=== PATIENT | male | born 1950 | race Caucasian/White ===

== ENCOUNTER 2022-08-22 14:44 | Inpatient (IN) | payer OTHER ==
[~2022-08-22] VITALS: Ht 182.9 cm; Wt 120.8 kg
[~2022-08-22 14:44] MED LIST: AMIT25 PO; ATOR10 PO; Carvedilol12.5 MG PO; Cyclobenzaprine5 MG; DEXA6 PO; GABA100 PO; LISI5 PO; OMEP20ER PO; Percocet 5-3251 EACH PO; TRAZ50; XARELTO20 MG PO
[2022-08-22 15:16] LABS: BASOPHILS ABSOLUTE AUTO 0.03 K/mm3 (0.00-0.23); BASOPHILS PERCENT AUTO 0 % (0-2); EOSINOPHILS ABSOLUTE AUTO 0.02 K/mm3 (0.00-0.68); EOSINOPHILS PERCENT AUTO 0 % (0-6); Hematocrit 43.5 % (37.0-53.0); Hemoglobin 15.5 g/dL (13.5-17.5); IMMATURE GRAN ABSOLUTE AUTO 0.04 K/mm3 (0.00-0.10); IMMATURE GRAN PERCENT AUTO 0 % (0-1); LYMPHOCYTES ABSOLUTE AUTO 1.38 K/mm3 (0.84-5.20); LYMPHOCYTES PERCENT AUTO 12 % (21-46); MONOCYTES ABSOLUTE AUTO 1.02 K/mm3 (0.16-1.47); MONOCYTES PERCENT AUTO 9 % (4-13); Mean Corpuscular HGB 30.3 pg (26.0-34.0); Mean Corpuscular HGB Conc 35.6 g/dL (31.5-36.5); Mean Corpuscular Volume 85 fL (80-100); NEUTROPHILS ABSOLUTE AUTO 9.12 K/mm3 (1.96-9.15); NEUTROPHILS PERCENT AUTO 79 % (41-73); Platelet Count 123 K/mm3 (150-400); RDW Coefficient Variation 12.9 % (11.7-14.2); RDW Standard Deviation 39.5 fL (35.1-46.3); Red Blood Cell Count 5.12 M/mm3 (4.30-5.90); White Blood Cell Count 11.61 K/mm3 (4.00-11.30)
[2022-08-22 15:19] LABS: Mean Platelet Volume 13.3 fL (9.1-12.4)
[2022-08-22 15:38] LABS: Albumin, Blood 3.1 g/dL (3.4-5.0); Albumin/Globulin Ratio 0.7 (0.8-1.8); Bun/Creatinine Ratio 22.8 (12.0-20.0); Calcium, Blood 11.1 mg/dL (8.5-10.1); Creatinine, Blood 1.49 mg/dL (0.60-1.20); Globulin, Blood 4.6 g/dL (2.2-4.0); Potassium, Blood 4.4 mmol/L (3.5-5.5); Total Protein, Blood 7.7 g/dL (6.4-8.2)
[2022-08-23 04:04] LABS: BASOPHILS ABSOLUTE AUTO 0.04 K/mm3 (0.00-0.23); BASOPHILS PERCENT AUTO 0 % (0-2); EOSINOPHILS ABSOLUTE AUTO 0.03 K/mm3 (0.00-0.68); EOSINOPHILS PERCENT AUTO 0 % (0-6); Hematocrit 37.8 % (37.0-53.0); Hemoglobin 13.5 g/dL (13.5-17.5); IMMATURE GRAN ABSOLUTE AUTO 0.03 K/mm3 (0.00-0.10); IMMATURE GRAN PERCENT AUTO 0 % (0-1); LYMPHOCYTES ABSOLUTE AUTO 1.43 K/mm3 (0.84-5.20); LYMPHOCYTES PERCENT AUTO 13 % (21-46); MONOCYTES ABSOLUTE AUTO 1.38 K/mm3 (0.16-1.47); MONOCYTES PERCENT AUTO 13 % (4-13); Mean Corpuscular HGB 30.4 pg (26.0-34.0); Mean Corpuscular HGB Conc 35.7 g/dL (31.5-36.5); Mean Corpuscular Volume 85 fL (80-100); Mean Platelet Volume 13.1 fL (9.1-12.4); NEUTROPHILS ABSOLUTE AUTO 8.02 K/mm3 (1.96-9.15); NEUTROPHILS PERCENT AUTO 73 % (41-73); Platelet Count 124 K/mm3 (150-400); RDW Coefficient Variation 12.8 % (11.7-14.2); RDW Standard Deviation 39.6 fL (35.1-46.3); Red Blood Cell Count 4.44 M/mm3 (4.30-5.90); White Blood Cell Count 10.93 K/mm3 (4.00-11.30)
[2022-08-23 04:16] LABS: Bun/Creatinine Ratio 22.2 (12.0-20.0); Calcium, Blood 10.1 mg/dL (8.5-10.1); Creatinine, Blood 1.35 mg/dL (0.60-1.20); International Normalized Ratio 1.09; Prothrombin Time Results 11.4 Sec (9.7-11.5)
--- NOTE | 2022-08-23 05:20 | NUR ---
SHIFT SUMMARY: PT. CAME IN OVERNIGHT WITH EXTREME HYPERTENSION INTO THE 220S. METOPROLOL, HYDRALAZINE, AND COREG WERE GIVEN TO BRING BP BACK DOWN. BP CAME DOWN TO 140S SYSTOLIC BUT INCREASED INTO THE AM. PT. HAS SCHEDULED AM BP MEDS. PT. IS ON ROOM AIR AND HAS BEEN IN IRREGULAR RHYTHM AND TACHY INTO THE LOW 100S. PT. HAS NO COMPLAINTS OF CHEST PAIN AND HIS ONLY COMPLAINT IS PAIN IN HIS RIGHT GREAT TOE WHICH PT. IS BEING TAKEN TO MRI FOR THIS AM. PODIATRY HAS BEEN CONSULTED ON THE TOE WELL. PT. RESTING COMFORTABLY IN BED WITH NO COMPLAINTS AT THIS TIME.
[2022-08-23 09:23] LABS: CHOL/HDL RATIO 4.2; Cholesterol 130 mg/dL (50-200); HDL Cholesterol 31 mg/dL (>39); Low Density Lipoprotein Chol 63 mg/dL (0-110); Triglycerides 179 mg/dL (30-160); Very Low Density Lipoprot Chol 35 mg/dL (6-32)
--- NOTE | 2022-08-23 10:54 | NUR ---
ASSUMED CARE OF PT AT 0700. MRI COMPLETED AND DR DAS CALLED AND NOTIFIED OF RESULTS. NO NEW ORDERS AT THIS TIME. WILL CONTINUE TO MONITOR.
--- NOTE | 2022-08-23 17:50 | NUR ---
DR DAS IS PLANNING TO TAKE PT TO SURGERY ON SATURDAY 08/25. PT IS RECEIVING IV ABX. FSBS HAVE BEEN HIGH, COVERED PER SS ORDERS, BLOOD PRESSURE HAS IMPROVED, SEE DOCUMENTED VS. NO CHANGES IN PT CONDITION NOTED, PT USES CALL LIGHT FOR NEEDS, PT IS IMPULSIVE AT TIMES, GETTING OOB WITHOUT ASSITANCE. PT'S AT BEDSIDE AND VERY HELPFUL FOR PT CARE. CALL LIGHT IN REACH, WILL CONTINUE TO MONITOR AND GIVE REPORT TO NOC SHIFT RN.
[2022-08-23] MEDS ORDERED: INSULIN GL100 UNIT/3 SC ×2 (21:20)
[2022-08-23] MEDS ORDERED: NOVOLOG FL100 UNIT/3 SC ×2 (21:21)
[2022-08-23] MEDS ORDERED: FLUN25SP ×2 (22:02)
[2022-08-23] MEDS ORDERED: JARDIANCE25 MG PO ×2 (22:03)
[2022-08-23] MEDS ORDERED: OXYC5 PO ×2 (22:04)
[2022-08-23] MEDS ORDERED: PREG25 PO ×2 (22:07)
[2022-08-23] MEDS ORDERED: METF500C PO ×2 (22:09)
[2022-08-23] MEDS ORDERED: ALLEGRA ALLERG180 MG PO ×2 (22:10)
[2022-08-23] MEDS ORDERED: TRAZ100 PO ×2 (22:12)
[2022-08-23] MEDS ORDERED: Hytrin2 MG PO ×2 (22:13)
[2022-08-24 03:41] LABS: Hematocrit 39.8 % (37.0-53.0); Hemoglobin 13.6 g/dL (13.5-17.5); Mean Corpuscular HGB 29.4 pg (26.0-34.0); Mean Corpuscular HGB Conc 34.2 g/dL (31.5-36.5); Mean Corpuscular Volume 86 fL (80-100); Mean Platelet Volume 13.4 fL (9.1-12.4); Platelet Count 136 K/mm3 (150-400); RDW Coefficient Variation 12.9 % (11.7-14.2); RDW Standard Deviation 40.5 fL (35.1-46.3); Red Blood Cell Count 4.63 M/mm3 (4.30-5.90); White Blood Cell Count 10.54 K/mm3 (4.00-11.30)
[2022-08-24 03:58] LABS: Albumin, Blood 2.5 g/dL (3.4-5.0); Albumin/Globulin Ratio 0.6 (0.8-1.8); Bilirubin, Total 0.7 mg/dL (0.1-1.0); Bun/Creatinine Ratio 22.7 (12.0-20.0); Calcium, Blood 10.5 mg/dL (8.5-10.1); Creatinine, Blood 1.28 mg/dL (0.60-1.20); Globulin, Blood 4.2 g/dL (2.2-4.0); Potassium, Blood 3.8 mmol/L (3.5-5.5); Total Protein, Blood 6.7 g/dL (6.4-8.2)
[2022-08-24 04:28] LABS: Vancomycin, Trough 20.5 ug/mL (5.0-10.0)
--- NOTE | 2022-08-24 07:30 | NUR ---
NO ACUTE EVENTS OVERNIGHT LAST NIGHT. PATIENT COMPLAINED OF THE NUMBER OF INTERRUPTIONS TO HIS SLEEP AND ASKED THAT SOMETHING BE DONE TO REDUCE THE INTERRUPTIONS OVERNIGHT SO THAT HE CAN SLEEP. I ADVISED THE PATIENT THAT I WILL DO THE BEST I CAN TO MINIMIZE INTERRUPTIONS TO HIS SLEEP, BUT THE NUMBER OF INTERRUPTIONS ARE ALSO DEPENDENT UPON HIS CONDITION THROUGH THE NIGHT. LAST NIGHT THERE WERE ONGOING ISSUES WITH ELEVATED BLOOD PRESSURE AND HIS BLOOD PRESSURE IS BETTER CONTROLLED AT THIS TIME. PATIENT'S WAS STILL AT BEDSIDE AT 21:00 LAST NIGHT. ADVISED BOTH PATIENT AND HIS SPOUSE THAT VISTING HOURS ARE FROM [phone]. SPOUSE SAID THAT SHE IS NOT GOING TO LEAVE HIS SIDE BECAUSE HE GOT UPSET WITH THE STAFF DURING HIS LAST HOSPITAL STAY AND WAS ASKED BY THE STAFF TO COME IN TO HELP TO CALM HIM DOWN. I STATED THAT I UNDERSTAND THAT THERE ARE TIMES WHEN THAT MAY BE NECESSARY, BUT THAT IS NOT THE CASE THIS HOSPITAL STAY. SUCH, I ASKED THAT THEY ADHERE TO THE HOSPITAL'S VISITING HOURS. THE PATIENT WAS UPSET THAT SHE WAS BEING ASKED TO LEAVE AND MRS. RUTLEDGE REFUSED TO LEAVE. LONG DISCUSSION ALSO HAD WITH PATIENT AND SPOUSE ABOUT THE LIMITATIONS PUT UPON VISITORS WHEN VISITING A PATIENT WHO IS IN ISOLATION. PATIENT IS IN ISOLATION FOR MRSA AND THIS REQUIRES THAT ALL VISITORS WEAR THE APPROPRIATE PPE WHILE IN THE PATIENT'S ROOM AND THAT THE VISITOR MUST REMAIN IN THE ROOM AND NOT COME OUT INTO THE HALLWAY OR INTO OTHER CARE AREAS. THE EXPECTATION IS THAT VISITORS LIMIT THEIR VISITS TO THE PATIENT'S ROOM AND THEN MUST GO DIRECTLY TO THEIR VEHICLE WHEN LEAVING. VISITORS CANNOT GO TO OTHER AREAS OF THE HOSPITAL LIKE THE [place]. I PROVIDED THE SPOUSE WITH AN ISOLATION GOWN AND SOME GLOVES AND SHOWED HER THE PROPER WAY TO DON AND DOFF THE PERSONAL PROTECTIVE EQUIPMENT. PATIENT AND SPOUSE AGREED TO THESE RESTRICTIONS STATED ABOVE.
--- NOTE | 2022-08-24 12:21 | NUR ---
DR DAS AT BEDSIDE, CHANGED DRESSING TO R TOE. DISCUSSED SURGERY WITH PT. REPORT GIVEN TO JOANNA TO ASSUME CARE OF PT.
--- NOTE | 2022-08-24 16:15 | NUR ---
ASSUME CARE THIS RN HAD THIS PT FOR APPROX 2 HRS OF CARE RECEIVED REPORT FROM YAHAIRA DOBBINS AT 1230, NO ACUTE CHANGE SINCE TRANSFER OF CARE THEN PT TRANSFERRED TO SURGICAL FLR RM 209 AT APPROX 1430 REPORT GIVEN TO SAMARIA DOBBINS. PT TRANSFERRED VIA WHEELCHAIR ACCOMPANIED BY PCT ALL BELONGINGS SENT WITH THE PT
--- NOTE | 2022-08-24 16:52 | NUR ---
SHIFT SUMMARY PT A/O X4; PLEASANT AND COOPERATIVE WITH CARE. NPO AT MIDNIGHT FOR AMPUTATION OF R TOE TOMORROW. C/O CRAMPING AND PAIN IN R FOOT/LEG, TREATED PER EMR. SBA TO BATHROOM W/FWW. VSS.
[2022-08-24 23:55] LABS: Vancomycin, Trough 17.2 ug/mL (5.0-10.0)
--- NOTE | 2022-08-25 05:26 | NUR ---
SHIFT SUMMARY: PT SLEPT T/O THE SHIFT. A&OX4. SURGICAL INFECTION PREVENTION KIT COMPLETED. LEFT MONIQUE WRAP AND KERLEX IN PLACE. CLEANED FROM ANKLE UP TO SHOULDER WITH WIPES. TOLERATED PO FLUIDS EARLIER IN THE SHIFT. HAS BEEN NPO SINCE MIDNIGHT. CALLS APPROPRIATELY. PLANS FOR SURGERY TODAY.
[2022-08-25 06:19] LABS: Hemoglobin 13.9 g/dL (13.5-17.5); Mean Corpuscular HGB 29.8 pg (26.0-34.0); Mean Corpuscular HGB Conc 34.8 g/dL (31.5-36.5); Mean Corpuscular Volume 86 fL (80-100); Mean Platelet Volume 12.7 fL (9.1-12.4); Platelet Count 155 K/mm3 (150-400); RDW Standard Deviation 40.1 fL (35.1-46.3); Red Blood Cell Count 4.67 M/mm3 (4.30-5.90); White Blood Cell Count 13.61 K/mm3 (4.00-11.30)
[2022-08-25 06:37] LABS: Albumin, Blood 2.5 g/dL (3.4-5.0); Albumin/Globulin Ratio 0.6 (0.8-1.8); Bilirubin, Total 0.6 mg/dL (0.1-1.0); Bun/Creatinine Ratio 20.8 (12.0-20.0); Calcium, Blood 10.7 mg/dL (8.5-10.1); Creatinine, Blood 1.25 mg/dL (0.60-1.20); Globulin, Blood 4.2 g/dL (2.2-4.0); Potassium, Blood 3.8 mmol/L (3.5-5.5); Total Protein, Blood 6.7 g/dL (6.4-8.2)
[2022-08-25 07:07] LABS: SARS-Cov-2 (COVID-19) PCR, MMC NEGATIVE (NEGATIVE)
--- NOTE | 2022-08-25 11:35 | NUR ---
pt to OR
--- NOTE | 2022-08-25 13:45 | NUR ---
PT ARRIVED BACK TO UNIT FROM PACU. TELE NOTIFIED. PT A&OX4. EATING LUNCH. PAS ON. DENIES PAIN OR N/V. CALL LIGHT AND PHONE WITHIN REACH.
--- NOTE | 2022-08-25 17:18 | NUR ---
summary PT POD 0 FOR R GREAT TOE AMPUTATION. DRESSING CDI. PT TELE SHOWS AFLUTTER, TACHY IN LOW 100S. AMDINISTERED MEDS PER ORDERS. EVENINIG CBG 300, COVERED PER ORDERS. PT ALERT AND ORIENTED. SPOUSE AT BEDSIDE. PT HAS NOT REPORTED ANY PAIN, N/V OR SOB. CALL LIGHT IN REACH.
--- NOTE | 2022-08-25 19:27 | NUR ---
report given to oncoming shift.
--- NOTE | 2022-08-26 03:45 | NUR ---
SHIFT SUMMARY POD1 R GREAT TOE PARTIAL AMPUTATION WRAPPED WITH GAUZE AND MONIQUE WRAP. DRESSING REMAIN CDI. PT REPORT NUMBNESS AND TINLGING WHICH IS HIS BASELINE D/T HX NEUROPATHY. ABLE TO WIGGLE TOES, MOVE LOW EXTREMITIY, CAP REFILL WNL. PT EATING DENIES N/V. VOIDING URINAL WITH ASSISTANCE. CALLS APPROPRIATELY. AOX4. CBG REMAIN HIGH, HS 447 WITH INSULIN COVERAGE WITHOUT IMPROVEMENT AT MIDNIGHT OF 437. CALLED DR. FERNANDO. SEE NEW ORDERS ON EMR. PT DENIES PAIN. CALL LIGHT WITHIN REACH. WILL PROVIDE REPORT TO ONCOMING NURSE.
[2022-08-26 04:38] LABS: BASOPHILS ABSOLUTE AUTO 0.04 K/mm3 (0.00-0.23); BASOPHILS PERCENT AUTO 0 % (0-2); EOSINOPHILS ABSOLUTE AUTO 0.01 K/mm3 (0.00-0.68); EOSINOPHILS PERCENT AUTO 0 % (0-6); Hematocrit 39.8 % (37.0-53.0); Hemoglobin 13.5 g/dL (13.5-17.5); IMMATURE GRAN ABSOLUTE AUTO 0.08 K/mm3 (0.00-0.10); IMMATURE GRAN PERCENT AUTO 0 % (0-1); LYMPHOCYTES ABSOLUTE AUTO 1.57 K/mm3 (0.84-5.20); LYMPHOCYTES PERCENT AUTO 9 % (21-46); MONOCYTES ABSOLUTE AUTO 1.11 K/mm3 (0.16-1.47); MONOCYTES PERCENT AUTO 6 % (4-13); Mean Corpuscular HGB 29.3 pg (26.0-34.0); Mean Corpuscular HGB Conc 33.9 g/dL (31.5-36.5); Mean Corpuscular Volume 87 fL (80-100); Mean Platelet Volume 12.9 fL (9.1-12.4); NEUTROPHILS PERCENT AUTO 84 % (41-73); Platelet Count 199 K/mm3 (150-400); RDW Coefficient Variation 12.8 % (11.7-14.2); RDW Standard Deviation 40.5 fL (35.1-46.3); White Blood Cell Count 17.81 K/mm3 (4.00-11.30)
[2022-08-26 04:57] LABS: Bun/Creatinine Ratio 21.4 (12.0-20.0); Calcium, Blood 11.3 mg/dL (8.5-10.1); Creatinine, Blood 1.45 mg/dL (0.60-1.20); Potassium, Blood 4.5 mmol/L (3.5-5.5)
--- NOTE | 2022-08-26 10:28 | NUR ---
DR CANNON IN TO SEE PT NOTIFIED DR CANNON PT'S AM CBG 355.
--- NOTE | 2022-08-26 10:34 | NUR ---
PLACED MSG TO DR DAS'S OFFICE IN REGARDS TO WB STATUS/ORDERS FOR PT/OT.
[2022-08-26 11:36] LABS: Vancomycin, Trough 19.3 ug/mL (5.0-10.0)
--- NOTE | 2022-08-26 14:53 | NUR ---
OT IN TO SEE PT.
--- NOTE | 2022-08-26 16:53 | NUR ---
SUMMARY NO ACUTE CHANGES T/O SHIFT. PT A&OX4. VSS. WORKED W/PT AND OT TODAY. WEIGHT BEARING PRECAUTIONS: PARTIAL WEIGHT BEARING ON HEEL OF R FOOT. CBGS HAVE IMPROVED THROUGH COURSE OF DAY, THIS AM, CBG 355. THEN EVENING CBG 183. COVERING PER ORDERS. CALL LIGHT IN REACH.
--- NOTE | 2022-08-27 04:21 | NUR ---
SHIFT SUMMARY POD# 2 R GREAT TOE AMPUTATION. DRESSING WITH GAUZE AND MONIQUE WRAP C/D/I. DENIES PAIN, TOLERATING PO INTAKE DENIES N/V. ABLE TO VOID EASILY. REPOSITIONS INDEPENDENTLY. PT TO SEE PATIENT IN AM. NO ACUTE EVENTS, VSS. CALL LIGHT IN REACH.
--- NOTE | 2022-08-27 12:00 | NUR ---
DR. CANNON CONTACTED [facility], PLAN TO RUN AM LABS TOMORROW. PER ORDERS.
--- NOTE | 2022-08-27 17:38 | NUR ---
SHIFT SUMMARY PT A&OX4 AND IN PLEASENT MOOD T/O SHIFT. POD2 R GREAT TOE, MONIQUE AND KURLEX-CDI. PAIN MEDICATED PER EMAR. SPOUSE IN T/O SHIFT AND ASSISTS W/ CARE. PT USES URINAL TO VOID, R/O SCRATCHING PENIS MIN BLOOD NOTED-PLAN TO CONTINUE TO MONITOR FOR BLEEDING. CALL LIGHT W/IN REACH. TOLERATING PO INTAKE, DENIES N/V. BLOOD GLUCOSE MEDICATED PER SLIDE SCALE. TELE IN PLACE-AFLUTT.
[2022-08-27 23:33] LABS: Vancomycin, Trough 23.7 ug/mL (5.0-10.0)
[2022-08-28 04:42] LABS: BASOPHILS ABSOLUTE AUTO 0.14 K/mm3 (0.00-0.23); BASOPHILS PERCENT AUTO 1 % (0-2); EOSINOPHILS PERCENT AUTO 2 % (0-6); Hematocrit 41.3 % (37.0-53.0); Hemoglobin 13.8 g/dL (13.5-17.5); IMMATURE GRAN ABSOLUTE AUTO 0.35 K/mm3 (0.00-0.10); IMMATURE GRAN PERCENT AUTO 3 % (0-1); LYMPHOCYTES ABSOLUTE AUTO 3.02 K/mm3 (0.84-5.20); LYMPHOCYTES PERCENT AUTO 27 % (21-46); MONOCYTES ABSOLUTE AUTO 1.03 K/mm3 (0.16-1.47); MONOCYTES PERCENT AUTO 9 % (4-13); Mean Corpuscular HGB 29.4 pg (26.0-34.0); Mean Corpuscular HGB Conc 33.4 g/dL (31.5-36.5); Mean Corpuscular Volume 88 fL (80-100); Mean Platelet Volume 12.4 fL (9.1-12.4); NEUTROPHILS ABSOLUTE AUTO 6.67 K/mm3 (1.96-9.15); NEUTROPHILS PERCENT AUTO 58 % (41-73); Platelet Count 260 K/mm3 (150-400); RDW Coefficient Variation 13.1 % (11.7-14.2); Red Blood Cell Count 4.69 M/mm3 (4.30-5.90); White Blood Cell Count 11.41 K/mm3 (4.00-11.30)
[2022-08-28 04:55] LABS: Bun/Creatinine Ratio 23.1 (12.0-20.0); Calcium, Blood 11.3 mg/dL (8.5-10.1); Creatinine, Blood 1.6 mg/dL (0.60-1.20); Potassium, Blood 4.2 mmol/L (3.5-5.5)
--- NOTE | 2022-08-28 05:46 | NUR ---
SHIFT SUMMARY POD 2 R GREAT TOE AMPUTATION. PATIENT AOX4, NEEDS 1 SBA GB, FWW TO AMBULATE TO THE BATHROOM. TOELRATES PO INTAKE, DENIES N/V. VOIDS EASILY. AWAITING PATHO AND CULTURE RESULTS FOR ABX THERAPY. IV X2 IN R WIRST, AND R HAND, SALINE LOCKED. DENIES PAIN, UP TO THE CHAIR THIS AM WITH EASE. VSS, CALLS APROPRIATELY.
[2022-08-28] MEDS ORDERED: Acetaminophen650 M1 PO ×2 (16:21)
[2022-08-28] MEDS ORDERED: VANCOMYCIN HCL1 G1 IV ×2 (16:27)
[2022-08-28] MEDS ORDERED: VISBIOME 112.51 EACH PO ×2 (16:29)
--- NOTE | 2022-08-28 18:00 | NUR ---
DISCHARGE SUMMARY POD1 R GREAT TOE AMPUTATION, A/O X4, VSS, TOLERATING PO, DENIES PAIN, ABLE TO GET FROM BED TO BATHROOM WITH FWW INDEPENDENTLY, MONIQUE WRAP TO R FOOT C/D/I AND PATIENT PROVIDED 2 EXTRA MONIQUE WRAPS INCASE CURRENT ONE GETS SOILED AT HOME. DISCUSSED DISCHARGE INFORMATION WITH THE PATIENT INCLUDING HOME CARE, ROLY INFUSIONS, FOLLOW UP APPOINTMENTS, AND CONTACT INFORMATION SHOULD QUESTIONS COME UP AFTER LEAVING. POWERGLIDE IN PLACE FOR INFUSIONS, IV ACCESS DEVICES REMOVED, TELE REMOVED AND RETURNED TO PCU. PT LEFT VIA PRIVATE WC TO GO HOME.
== END 2022-08-28 17:00 | disposition home or self-care (01) | DRG 617 ==
LOC: ER 14:44 → PCU 18:36 → SURS 18:36 → PCU 20:35 → SURS 08-24 14:39
PROVIDERS: Emergency Medicine; Internal Medicine; Student in an Organized Health Care Education/Training Program; ADMIT Hospitalist
PROC: 0Y6P0Z1 Detachment at Right 1st Toe, High, Open Approach (ICD-10-PCS; principal; 2022-08-26)
PROC: 02HV33Z Insertion of Infusion Device into Superior Vena Cava, Percutaneous Approach (ICD-10-PCS; 2022-08-26)
DX: E11.69 Type 2 diabetes mellitus with other specified complication (principal); E87.1 Hypo-osmolality and hyponatremia; I48.92 Unspecified atrial flutter; M86.8X7 Other osteomyelitis, ankle and foot; G62.9 Polyneuropathy, unspecified; S92.421A Displaced fracture of distal phalanx of right great toe, initial encounter for closed fracture; I48.91 Unspecified atrial fibrillation; E11.65 Type 2 diabetes mellitus with hyperglycemia; Z68.24 Body mass index [BMI] 24.0-24.9, adult; E66.01 Morbid (severe) obesity due to excess calories; L03.031 Cellulitis of right toe; E11.22 Type 2 diabetes mellitus with diabetic chronic kidney disease; N18.31 Chronic kidney disease, stage 3a; I12.9 Hypertensive chronic kidney disease with stage 1 through stage 4 chronic kidney disease, or unspecified chronic kidney disease; K21.9 Gastro-esophageal reflux disease without esophagitis; G47.33 Obstructive sleep apnea (adult) (pediatric); E78.5 Hyperlipidemia, unspecified; F43.10 Post-traumatic stress disorder, unspecified; Z87.891 Personal history of nicotine dependence; Z86.14 Personal history of Methicillin resistant Staphylococcus aureus infection; Z79.899 Other long term (current) drug therapy; Z79.01 Long term (current) use of anticoagulants; Z79.4 Long term (current) use of insulin; Z98.42 Cataract extraction status, left eye; Z98.41 Cataract extraction status, right eye
CPT/HCPCS: 36415; 73660; 73718; 80048; 80053; 80061; 80202; 82947; 83036; 83605; 83880; 85025; 85027; 85610; 85651; 86140; 87071; 87075; 87077; 87147; 87186; 87205; 88305; 88311; 93005; 93010; 96365; 96366; 97110; 97116; 97162; 97166; 99285-25; A9270; J0360; J0696; J1100; J1644; J1815; J2001; J2370; J2405; J2704; J2795; J3010; J3370; J7030; J7050; J7120; U0004

== ENCOUNTER 2022-08-30 00:13 | Day surgery (SDC) | payer OTHER ==
[~2022-08-30] VITALS: Ht 182.9 cm; Wt 121.9 kg
[~2022-08-30 00:13] MED LIST changes: +ALLEGRA ALLERG180 MG PO; +Acetaminophen650 M1 PO; +FLUN25SP; +Hytrin2 MG PO; +INSULIN GL100 UNIT/3 SC; +JARDIANCE25 MG PO; +METF500C PO; +NOVOLOG FL100 UNIT/3 SC; +OXYC5 PO; +PREG25 PO; +TRAZ100 PO; +VANCOMYCIN HCL1 G1 IV; +VISBIOME 112.51 EACH PO
[2022-08-30 13:49] LABS: Albumin, Blood 2.7 g/dL (3.4-5.0); Anion Gap 5 mmol/L (6-16); Blood Urea Nitrogen 33 mg/dL (8-24); Bun/Creatinine Ratio 20.5 (12.0-20.0); CO2, Blood 28 mmol/L (21-32); Calcium, Blood 11.3 mg/dL (8.5-10.1); Chloride, Blood 102 mmol/L (98-108); Creatinine, Blood 1.61 mg/dL (0.60-1.20); Glomerular Filtration Rate 45 (60-); Glucose, Blood 138 mg/dL (70-99); Phosphorus, Blood 2.1 mg/dL (2.5-4.9); Potassium, Blood 4.3 mmol/L (3.5-5.5); Sodium, Blood 135 mmol/L (136-145); Vancomycin, Trough 11.6 ug/mL (5.0-10.0)
== END 2022-08-30 15:17 | disposition home or self-care (01) ==
LOC: ATC 00:13
PROVIDERS: Student in an Organized Health Care Education/Training Program
DX: M86.9 Osteomyelitis, unspecified (principal); I12.9 Hypertensive chronic kidney disease with stage 1 through stage 4 chronic kidney disease, or unspecified chronic kidney disease; N18.32 Chronic kidney disease, stage 3b; E11.22 Type 2 diabetes mellitus with diabetic chronic kidney disease; E78.5 Hyperlipidemia, unspecified; I48.91 Unspecified atrial fibrillation; E66.01 Morbid (severe) obesity due to excess calories; Z79.01 Long term (current) use of anticoagulants; Z79.899 Other long term (current) drug therapy
CPT/HCPCS: 80069; 80202; J3370

== ENCOUNTER 2022-08-31 02:08 | Day surgery (SDC) | payer OTHER | END 2022-08-31 13:35 | disposition home or self-care (01) | LOC: ATC 02:08 | DX: M86.9 Osteomyelitis, unspecified (principal); E78.5 Hyperlipidemia, unspecified; I48.91 Unspecified atrial fibrillation; I12.9 Hypertensive chronic kidney disease with stage 1 through stage 4 chronic kidney disease, or unspecified chronic kidney disease; N18.32 Chronic kidney disease, stage 3b; E11.22 Type 2 diabetes mellitus with diabetic chronic kidney disease; E66.01 Morbid (severe) obesity due to excess calories; F17.220 Nicotine dependence, chewing tobacco, uncomplicated; Z79.01 Long term (current) use of anticoagulants; Z79.899 Other long term (current) drug therapy | CPT/HCPCS: J3370 ==

== ENCOUNTER 2022-09-01 01:10 | Day surgery (SDC) | payer OTHER ==
[2022-09-01 14:19] LABS: Creatinine, Blood 1.52 mg/dL (0.60-1.20); Vancomycin, Trough 12.4 ug/mL (5.0-10.0)
--- NOTE | 2022-09-01 14:53 | NUR ---
PT AND ASKING ABOUT FOLLOW UP APPOINTMENTS AND WHO WILL BE COMING TO THEIR HOME. rEVIEWED DISCHARGE INSTRUCTIONS. PT TO SEE DR. DAS FOR FOLLOWUP AND [facility]. PHONE NUMBERS FOR BOTH PROVIDED TO PT'S .
== END 2022-09-01 15:41 | disposition home or self-care (01) ==
LOC: ATC 01:10
PROVIDERS: Student in an Organized Health Care Education/Training Program
DX: E11.69 Type 2 diabetes mellitus with other specified complication (principal); M86.9 Osteomyelitis, unspecified; E11.65 Type 2 diabetes mellitus with hyperglycemia; Z89.411 Acquired absence of right great toe; Z79.4 Long term (current) use of insulin; I48.91 Unspecified atrial fibrillation; Z79.01 Long term (current) use of anticoagulants; I10 Essential (primary) hypertension; E78.5 Hyperlipidemia, unspecified; F17.220 Nicotine dependence, chewing tobacco, uncomplicated; E66.01 Morbid (severe) obesity due to excess calories; E87.1 Hypo-osmolality and hyponatremia
CPT/HCPCS: 80202; 82565; J3370

== ENCOUNTER 2022-09-02 02:40 | Day surgery (SDC) | payer OTHER | END 2022-09-02 10:46 | disposition home or self-care (01) | LOC: ATC 02:40 | DX: M86.9 Osteomyelitis, unspecified (principal); I12.9 Hypertensive chronic kidney disease with stage 1 through stage 4 chronic kidney disease, or unspecified chronic kidney disease; N18.32 Chronic kidney disease, stage 3b; E11.22 Type 2 diabetes mellitus with diabetic chronic kidney disease; E78.5 Hyperlipidemia, unspecified; I48.91 Unspecified atrial fibrillation | CPT/HCPCS: J3370 ==

== ENCOUNTER 2022-09-03 02:20 | Day surgery (SDC) | payer OTHER | END 2022-09-03 11:21 | disposition home or self-care (01) | LOC: ATC 02:20 | DX: E11.69 Type 2 diabetes mellitus with other specified complication (principal); M86.9 Osteomyelitis, unspecified; Z79.4 Long term (current) use of insulin; I10 Essential (primary) hypertension; E78.5 Hyperlipidemia, unspecified | CPT/HCPCS: J3370 ==

== ENCOUNTER 2022-09-04 01:10 | Day surgery (SDC) | payer OTHER ==
[2022-09-04 08:18] LABS: Creatinine, Blood 1.27 mg/dL (0.60-1.20); Glomerular Filtration Rate 60 (60-); Vancomycin, Trough 9.8 ug/mL (5.0-10.0)
== END 2022-09-04 09:57 | disposition home or self-care (01) ==
LOC: ATC 01:10
PROVIDERS: Student in an Organized Health Care Education/Training Program
DX: M86.9 Osteomyelitis, unspecified (principal); I12.9 Hypertensive chronic kidney disease with stage 1 through stage 4 chronic kidney disease, or unspecified chronic kidney disease; N18.32 Chronic kidney disease, stage 3b; E11.22 Type 2 diabetes mellitus with diabetic chronic kidney disease; E66.01 Morbid (severe) obesity due to excess calories; E78.5 Hyperlipidemia, unspecified; I48.91 Unspecified atrial fibrillation; F17.220 Nicotine dependence, chewing tobacco, uncomplicated; Z79.01 Long term (current) use of anticoagulants; Z79.899 Other long term (current) drug therapy
CPT/HCPCS: 80202; 82565; J3370; J7050

== ENCOUNTER 2022-09-05 00:30 | Day surgery (SDC) | payer OTHER | END 2022-09-05 10:02 | disposition home or self-care (01) | LOC: ATC 00:30 | DX: M86.9 Osteomyelitis, unspecified (principal); I48.92 Unspecified atrial flutter; E78.5 Hyperlipidemia, unspecified; I12.9 Hypertensive chronic kidney disease with stage 1 through stage 4 chronic kidney disease, or unspecified chronic kidney disease; N18.32 Chronic kidney disease, stage 3b; E11.22 Type 2 diabetes mellitus with diabetic chronic kidney disease; E66.01 Morbid (severe) obesity due to excess calories | CPT/HCPCS: J3370; J7050 ==

== ENCOUNTER 2022-09-08 02:55 | Day surgery (SDC) | payer OTHER | END 2022-09-08 10:47 | disposition home or self-care (01) | LOC: ATC 02:55 | DX: E11.69 Type 2 diabetes mellitus with other specified complication (principal); M86.9 Osteomyelitis, unspecified; I48.91 Unspecified atrial fibrillation; E11.22 Type 2 diabetes mellitus with diabetic chronic kidney disease; I12.9 Hypertensive chronic kidney disease with stage 1 through stage 4 chronic kidney disease, or unspecified chronic kidney disease; N18.32 Chronic kidney disease, stage 3b; E78.5 Hyperlipidemia, unspecified; I48.92 Unspecified atrial flutter; E66.01 Morbid (severe) obesity due to excess calories; Z89.411 Acquired absence of right great toe; Z79.4 Long term (current) use of insulin; Z79.01 Long term (current) use of anticoagulants; Z86.14 Personal history of Methicillin resistant Staphylococcus aureus infection | CPT/HCPCS: 96365; 96366; J3370; J7050 ==

== ENCOUNTER 2022-09-09 01:36 | Day surgery (SDC) | payer OTHER | END 2022-09-09 10:09 | disposition home or self-care (01) | LOC: ATC 01:36 | DX: E11.69 Type 2 diabetes mellitus with other specified complication (principal); M86.9 Osteomyelitis, unspecified; E78.5 Hyperlipidemia, unspecified; E87.1 Hypo-osmolality and hyponatremia; E11.22 Type 2 diabetes mellitus with diabetic chronic kidney disease; N18.32 Chronic kidney disease, stage 3b; E66.01 Morbid (severe) obesity due to excess calories; I12.9 Hypertensive chronic kidney disease with stage 1 through stage 4 chronic kidney disease, or unspecified chronic kidney disease | CPT/HCPCS: 96365; J3370; J7050 ==

== ENCOUNTER 2022-09-10 02:28 | Day surgery (SDC) | payer OTHER ==
[2022-09-10 08:31] LABS: Creatinine, Blood 1.81 mg/dL (0.60-1.20); Glomerular Filtration Rate 39 (60-); Vancomycin, Trough 20.5 ug/mL (5.0-10.0)
--- NOTE | 2022-09-10 08:40 | NUR ---
PER [facility]ERTH IN PHARMACY WE ARE TO HOLD THE DOSE OF VANCO TODAY AND RECHECK LABS TOMORROW. PT AND EDUCATED REGARDING LAB RESULTS AND PLAN
== END 2022-09-10 08:40 | disposition home or self-care (01) ==
LOC: ATC 02:28
PROVIDERS: Student in an Organized Health Care Education/Training Program
DX: E11.69 Type 2 diabetes mellitus with other specified complication (principal); M86.9 Osteomyelitis, unspecified; I48.91 Unspecified atrial fibrillation; E78.5 Hyperlipidemia, unspecified; I48.92 Unspecified atrial flutter; I12.9 Hypertensive chronic kidney disease with stage 1 through stage 4 chronic kidney disease, or unspecified chronic kidney disease; E11.22 Type 2 diabetes mellitus with diabetic chronic kidney disease; N18.32 Chronic kidney disease, stage 3b; E66.01 Morbid (severe) obesity due to excess calories; Z89.411 Acquired absence of right great toe; Z79.4 Long term (current) use of insulin; Z79.01 Long term (current) use of anticoagulants; Z86.14 Personal history of Methicillin resistant Staphylococcus aureus infection
CPT/HCPCS: 36592; 80202; 82565

== ENCOUNTER 2022-09-11 03:22 | Day surgery (SDC) | payer OTHER ==
[2022-09-11 09:05] LABS: Vancomycin, Random 12.2 ug/mL
== END 2022-09-11 10:57 | disposition home or self-care (01) ==
LOC: ATC 03:22
PROVIDERS: Student in an Organized Health Care Education/Training Program
DX: E11.69 Type 2 diabetes mellitus with other specified complication (principal); M86.9 Osteomyelitis, unspecified; I48.91 Unspecified atrial fibrillation; E78.5 Hyperlipidemia, unspecified; I48.92 Unspecified atrial flutter; E11.22 Type 2 diabetes mellitus with diabetic chronic kidney disease; I12.9 Hypertensive chronic kidney disease with stage 1 through stage 4 chronic kidney disease, or unspecified chronic kidney disease; N18.32 Chronic kidney disease, stage 3b; E66.01 Morbid (severe) obesity due to excess calories; Z89.411 Acquired absence of right great toe; Z79.4 Long term (current) use of insulin; Z79.01 Long term (current) use of anticoagulants; Z86.14 Personal history of Methicillin resistant Staphylococcus aureus infection
CPT/HCPCS: 80202; 82565; 96365; J3370; J7050

== ENCOUNTER 2022-09-13 00:28 | Day surgery (SDC) | payer OTHER ==
[2022-09-13 08:21] LABS: Creatinine, Blood 1.75 mg/dL (0.60-1.20); Vancomycin, Trough 12.7 ug/mL (5.0-10.0)
== END 2022-09-13 10:17 | disposition home or self-care (01) ==
LOC: ATC 00:28
PROVIDERS: Student in an Organized Health Care Education/Training Program
DX: E11.69 Type 2 diabetes mellitus with other specified complication (principal); M86.9 Osteomyelitis, unspecified; E78.5 Hyperlipidemia, unspecified; I48.91 Unspecified atrial fibrillation; I48.92 Unspecified atrial flutter; I12.9 Hypertensive chronic kidney disease with stage 1 through stage 4 chronic kidney disease, or unspecified chronic kidney disease; E11.22 Type 2 diabetes mellitus with diabetic chronic kidney disease; N18.32 Chronic kidney disease, stage 3b; E66.9 Obesity, unspecified; Z79.4 Long term (current) use of insulin; Z89.411 Acquired absence of right great toe; Z79.01 Long term (current) use of anticoagulants; Z86.14 Personal history of Methicillin resistant Staphylococcus aureus infection
CPT/HCPCS: 80202; 82565; J3370; J7050

== ENCOUNTER 2022-09-17 02:31 | Day surgery (SDC) | payer OTHER ==
[2022-09-17 09:02] LABS: Creatinine, Blood 1.62 mg/dL (0.60-1.20); Vancomycin, Trough 10.4 ug/mL (5.0-10.0)
== END 2022-09-17 11:29 | disposition home or self-care (01) ==
LOC: ATC 02:31
PROVIDERS: Student in an Organized Health Care Education/Training Program
DX: E11.69 Type 2 diabetes mellitus with other specified complication (principal); M86.9 Osteomyelitis, unspecified; I48.91 Unspecified atrial fibrillation; I48.92 Unspecified atrial flutter; E78.5 Hyperlipidemia, unspecified; F17.220 Nicotine dependence, chewing tobacco, uncomplicated; I12.9 Hypertensive chronic kidney disease with stage 1 through stage 4 chronic kidney disease, or unspecified chronic kidney disease; N18.32 Chronic kidney disease, stage 3b; E11.22 Type 2 diabetes mellitus with diabetic chronic kidney disease; E66.01 Morbid (severe) obesity due to excess calories; Z89.411 Acquired absence of right great toe; Z79.01 Long term (current) use of anticoagulants; Z79.4 Long term (current) use of insulin
CPT/HCPCS: 80202; 82565; J3370; J7050

== ENCOUNTER 2022-09-19 02:20 | Day surgery (SDC) | payer OTHER | END 2022-09-19 09:28 | disposition home or self-care (01) | LOC: ATC 02:20 | DX: E11.69 Type 2 diabetes mellitus with other specified complication (principal); M86.9 Osteomyelitis, unspecified; I12.9 Hypertensive chronic kidney disease with stage 1 through stage 4 chronic kidney disease, or unspecified chronic kidney disease; E11.22 Type 2 diabetes mellitus with diabetic chronic kidney disease; N18.32 Chronic kidney disease, stage 3b; I48.91 Unspecified atrial fibrillation; E78.5 Hyperlipidemia, unspecified; I48.92 Unspecified atrial flutter; E66.01 Morbid (severe) obesity due to excess calories; Z89.411 Acquired absence of right great toe; Z79.4 Long term (current) use of insulin; Z79.01 Long term (current) use of anticoagulants; Z86.14 Personal history of Methicillin resistant Staphylococcus aureus infection | CPT/HCPCS: 96365; 96366; J3370; J7050 ==

== ENCOUNTER 2022-09-21 02:34 | Day surgery (SDC) | payer OTHER ==
[2022-09-21 09:46] LABS: Vancomycin, Trough 11.3 ug/mL (5.0-10.0)
== END 2022-09-21 11:58 | disposition home or self-care (01) ==
LOC: ATC 02:34
PROVIDERS: Student in an Organized Health Care Education/Training Program
DX: E11.69 Type 2 diabetes mellitus with other specified complication (principal); E11.65 Type 2 diabetes mellitus with hyperglycemia; I48.92 Unspecified atrial flutter; E78.5 Hyperlipidemia, unspecified; E87.1 Hypo-osmolality and hyponatremia; E11.22 Type 2 diabetes mellitus with diabetic chronic kidney disease; N18.32 Chronic kidney disease, stage 3b; I12.9 Hypertensive chronic kidney disease with stage 1 through stage 4 chronic kidney disease, or unspecified chronic kidney disease; E66.01 Morbid (severe) obesity due to excess calories
CPT/HCPCS: 80202; 82565; 96365; 96366; J3370; J7050

== ENCOUNTER 2022-09-23 04:21 | Day surgery (SDC) | payer OTHER | END 2022-09-23 10:44 | disposition home or self-care (01) | LOC: ATC 04:21 | DX: E11.69 Type 2 diabetes mellitus with other specified complication (principal); M86.9 Osteomyelitis, unspecified; Z79.4 Long term (current) use of insulin; I10 Essential (primary) hypertension; E78.5 Hyperlipidemia, unspecified; E11.65 Type 2 diabetes mellitus with hyperglycemia; E87.1 Hypo-osmolality and hyponatremia; E11.22 Type 2 diabetes mellitus with diabetic chronic kidney disease; N18.32 Chronic kidney disease, stage 3b; E66.01 Morbid (severe) obesity due to excess calories | CPT/HCPCS: J3370; J7050 ==

== ENCOUNTER 2023-01-27 16:11 | Inpatient (IN) | payer OTHER ==
[~2023-01-27] VITALS: Ht 172.7 cm; Wt 124.7 kg
[2023-01-27 18:16] LABS: EOSINOPHILS ABSOLUTE AUTO 0.14 K/mm3 (0.00-0.68); EOSINOPHILS PERCENT AUTO 1 % (0-6); Hemoglobin 13.3 g/dL (13.5-17.5); RDW Standard Deviation 41.8 fL (35.1-46.3)
[2023-01-27 18:20] LABS: BASOPHILS ABSOLUTE AUTO 0.04 K/mm3 (0.00-0.23); BASOPHILS PERCENT AUTO 0 % (0-2); Hematocrit 40.2 % (37.0-53.0); IMMATURE GRAN ABSOLUTE AUTO 0.06 K/mm3 (0.00-0.10); IMMATURE GRAN PERCENT AUTO 1 % (0-1); LYMPHOCYTES ABSOLUTE AUTO 2.04 K/mm3 (0.84-5.20); LYMPHOCYTES PERCENT AUTO 19 % (21-46); MONOCYTES ABSOLUTE AUTO 1.25 K/mm3 (0.16-1.47); MONOCYTES PERCENT AUTO 11 % (4-13); Mean Corpuscular HGB 28.5 pg (26.0-34.0); Mean Corpuscular HGB Conc 33.1 g/dL (31.5-36.5); Mean Corpuscular Volume 86 fL (80-100); Mean Platelet Volume 12.3 fL (9.1-12.4); NEUTROPHILS PERCENT AUTO 68 % (41-73); Platelet Count 220 K/mm3 (150-400); RDW Coefficient Variation 13.3 % (11.7-14.2); Red Blood Cell Count 4.66 M/mm3 (4.30-5.90); White Blood Cell Count 10.93 K/mm3 (4.00-11.30)
[2023-01-27 18:48] LABS: Albumin, Blood 3.1 g/dL (3.4-5.0); Albumin/Globulin Ratio 0.6 (0.8-1.8); Bilirubin, Total 0.4 mg/dL (0.1-1.0); Bun/Creatinine Ratio 22.7 (12.0-20.0); Calcium, Blood 11.2 mg/dL (8.5-10.1); Creatinine, Blood 1.76 mg/dL (0.60-1.20); Globulin, Blood 4.8 g/dL (2.2-4.0); Potassium, Blood 4.1 mmol/L (3.5-5.5); Total Protein, Blood 7.9 g/dL (6.4-8.2)
--- NOTE | 2023-01-27 23:26 | NUR ---
PATIENT IS A NEW ADMIT FROM THE ED. ARRIVED VIA W/C AND SBA TO BED. ALERT AND ORIENTED AND ON ROOM AIR. CELLULITIS TO LLE OUTLINE MARKED BY ED RN. PATIENT REPORTS HE DID NOT EAT AFTER TAKING LONG ACTING INSULIN THIS MORNING. CBG CHECK [address] FERNANDO IN ROOM FOR ASSESSMENT AND REPORTS WILL ADD IN ORDERS AND MEDICATION. DENIES CHEST PAIN, SOB, AND N/V. PATIENT ORIENTED TO ROOM AND CALL LIGHT SYSTEM. SIGNIFICANT OTHER IN ROOM FOR ADMIT AND STAYED FOR AN HOUR BEFORE GOING HOME. TV ON PER PATIENT REQUEST. CALL LIGHT IN REACH. WCTM.
--- NOTE | 2023-01-28 00:51 | NUR ---
PODIATRY CONSULT CALLED INTO DR PARADISE GROVER ([facility]) AND HE ANSWERED.
--- NOTE | 2023-01-28 04:17 | NUR ---
SHIFT SUMMARY PATIENT HAD NO ACUTE CHANGES. AXOX 4 AND SBA W/CANE TO BR. ON ROOM AIR. PIV REMAINS INTACT. IV ABX INFUSED. CBG 72. PODIATRY CONSULT CALLED IN. REPORTS LIVES IN [place] WITH SIGNIFICANT OTHER. CELLULITIS TO LLE BORDERLINE MARKED IN ED. VSS/AFEBRILE. DENIES CHEST PAIN, SOB, AND N/V. WATCHED TV AFTER ADMIT AND SLEPT MOST OF THE SHIFT. NS INFUSING @ 75 mL/HR X ONE. COOPERATIVE WITH CARE. CALL LIGHT IN REACH. BED IN LOWEST POSITION. WILL CONTINUE TO MONITOR UNTIL DAY SHIFT NURSE ASSUMES CARE.
[2023-01-28 05:59] LABS: BASOPHILS ABSOLUTE AUTO 0.05 K/mm3 (0.00-0.23); BASOPHILS PERCENT AUTO 1 % (0-2); EOSINOPHILS ABSOLUTE AUTO 0.21 K/mm3 (0.00-0.68); EOSINOPHILS PERCENT AUTO 3 % (0-6); Hemoglobin 12.6 g/dL (13.5-17.5); IMMATURE GRAN ABSOLUTE AUTO 0.06 K/mm3 (0.00-0.10); IMMATURE GRAN PERCENT AUTO 1 % (0-1); LYMPHOCYTES ABSOLUTE AUTO 1.23 K/mm3 (0.84-5.20); LYMPHOCYTES PERCENT AUTO 16 % (21-46); MONOCYTES ABSOLUTE AUTO 0.81 K/mm3 (0.16-1.47); MONOCYTES PERCENT AUTO 10 % (4-13); Mean Corpuscular HGB 28.4 pg (26.0-34.0); Mean Corpuscular HGB Conc 33.2 g/dL (31.5-36.5); Mean Corpuscular Volume 86 fL (80-100); Mean Platelet Volume 11.8 fL (9.1-12.4); NEUTROPHILS ABSOLUTE AUTO 5.56 K/mm3 (1.96-9.15); NEUTROPHILS PERCENT AUTO 70 % (41-73); Platelet Count 190 K/mm3 (150-400); RDW Coefficient Variation 13.3 % (11.7-14.2); RDW Standard Deviation 41.5 fL (35.1-46.3); Red Blood Cell Count 4.43 M/mm3 (4.30-5.90); White Blood Cell Count 7.92 K/mm3 (4.00-11.30)
[2023-01-28 06:26] LABS: Albumin, Blood 2.8 g/dL (3.4-5.0); Albumin/Globulin Ratio 0.7 (0.8-1.8); Bilirubin, Total 0.5 mg/dL (0.1-1.0); Bun/Creatinine Ratio 22.2 (12.0-20.0); Calcium, Blood 10.7 mg/dL (8.5-10.1); Creatinine, Blood 1.53 mg/dL (0.60-1.20); Total Protein, Blood 6.8 g/dL (6.4-8.2)
--- NOTE | 2023-01-28 18:26 | NUR ---
PATIENT IS ALERT AND ORIENTED AND COOPERATIVE WITH CARE. HE IS CONCERNED THAT WE ARENT GIVING HIM HIS HOME DOSE OF INSULIN, DR. WARREN NOTIFIED. DR. GROVER SAW THE PATIENT THIS EVENING AND PLACED SOME ORDERS. THE PATIENTS WAS AT THE BEDSIDE MOST OF THE DAY. NO NEW CONCERNS. WILL CONTINUE TO MONITOR
[2023-01-29 06:05] LABS: BASOPHILS ABSOLUTE AUTO 0.07 K/mm3 (0.00-0.23); BASOPHILS PERCENT AUTO 1 % (0-2); EOSINOPHILS ABSOLUTE AUTO 0.35 K/mm3 (0.00-0.68); EOSINOPHILS PERCENT AUTO 5 % (0-6); Hematocrit 38.7 % (37.0-53.0); Hemoglobin 12.9 g/dL (13.5-17.5); IMMATURE GRAN ABSOLUTE AUTO 0.05 K/mm3 (0.00-0.10); IMMATURE GRAN PERCENT AUTO 1 % (0-1); LYMPHOCYTES ABSOLUTE AUTO 1.85 K/mm3 (0.84-5.20); LYMPHOCYTES PERCENT AUTO 27 % (21-46); MONOCYTES ABSOLUTE AUTO 0.81 K/mm3 (0.16-1.47); MONOCYTES PERCENT AUTO 12 % (4-13); Mean Corpuscular HGB 28.5 pg (26.0-34.0); Mean Corpuscular HGB Conc 33.3 g/dL (31.5-36.5); Mean Corpuscular Volume 86 fL (80-100); Mean Platelet Volume 11.5 fL (9.1-12.4); NEUTROPHILS ABSOLUTE AUTO 3.82 K/mm3 (1.96-9.15); NEUTROPHILS PERCENT AUTO 55 % (41-73); Platelet Count 212 K/mm3 (150-400); RDW Standard Deviation 40.7 fL (35.1-46.3); Red Blood Cell Count 4.52 M/mm3 (4.30-5.90); White Blood Cell Count 6.95 K/mm3 (4.00-11.30)
[2023-01-29 06:28] LABS: Bun/Creatinine Ratio 23.7 (12.0-20.0); Calcium, Blood 11.6 mg/dL (8.5-10.1); Creatinine, Blood 1.35 mg/dL (0.60-1.20); Potassium, Blood 4.4 mmol/L (3.5-5.5)
--- NOTE | 2023-01-29 08:00 | NUR ---
pt up ad pancho in room ambulates indep, a/ox4, pleasant and cooperative with care, follows commands well, denies pain at this time, lungs are clear t/o, resp even and unlabored, no cough noted, hrr, edema noted to l foot that has cellulitis, piv to rfa site clear and patent, btx4, abd flat soft nontender, voids without diff, skin c/w/d, except for left foot, is pink and swollen, chery wells, call light in reach.
--- NOTE | 2023-01-29 18:19 | NUR ---
pt has had an uneventful day, at bedside most of the day, no complaints of pain, declined shower, no acute changes states he feels his foot is improving. call light in reach.
[2023-01-30 05:57] LABS: BASOPHILS ABSOLUTE AUTO 0.06 K/mm3 (0.00-0.23); BASOPHILS PERCENT AUTO 1 % (0-2); EOSINOPHILS ABSOLUTE AUTO 0.36 K/mm3 (0.00-0.68); EOSINOPHILS PERCENT AUTO 5 % (0-6); Hematocrit 39.1 % (37.0-53.0); Hemoglobin 13.2 g/dL (13.5-17.5); IMMATURE GRAN ABSOLUTE AUTO 0.03 K/mm3 (0.00-0.10); IMMATURE GRAN PERCENT AUTO 0 % (0-1); LYMPHOCYTES ABSOLUTE AUTO 2.17 K/mm3 (0.84-5.20); LYMPHOCYTES PERCENT AUTO 27 % (21-46); MONOCYTES ABSOLUTE AUTO 0.75 K/mm3 (0.16-1.47); MONOCYTES PERCENT AUTO 10 % (4-13); Mean Corpuscular HGB 29.1 pg (26.0-34.0); Mean Corpuscular HGB Conc 33.8 g/dL (31.5-36.5); Mean Corpuscular Volume 86 fL (80-100); Mean Platelet Volume 11.8 fL (9.1-12.4); NEUTROPHILS ABSOLUTE AUTO 4.54 K/mm3 (1.96-9.15); NEUTROPHILS PERCENT AUTO 57 % (41-73); Platelet Count 233 K/mm3 (150-400); RDW Standard Deviation 40.2 fL (35.1-46.3); Red Blood Cell Count 4.54 M/mm3 (4.30-5.90); White Blood Cell Count 7.91 K/mm3 (4.00-11.30)
[2023-01-30 06:23] LABS: Bun/Creatinine Ratio 21.1 (12.0-20.0); Calcium, Blood 11.5 mg/dL (8.5-10.1); Creatinine, Blood 1.23 mg/dL (0.60-1.20); Potassium, Blood 4.5 mmol/L (3.5-5.5)
--- NOTE | 2023-01-30 07:32 | NUR ---
ROCKY SLEPT OFF AND ON LAST NIGHT. HE'S A VERY LIGHT SLEEPER, AND WOULD WAKE EACH TIME STAFF WOULD CHECK ON HIM. HE IS INDEPENDENT WITH A CANE TO THE BATHROOM, AND HAD MINIMAL COMPLAINTS OF PAIN OR DISCOMFORT. HE DID NOT WANT TYLENOL, HOWEVER IF HE STAYS TODAY, HE WOULD LIKE SOMETHING STRONGER THAN TYLENOL, YET WEAKER THAN THE FENTANYL WHICH IS THE ONLY OTHER MEDICATION ON HIS ORDERS. REDNESS ON MEDIAL PORTION OF LEFT FOOT APPEARS TO BE RECEDING FROM MARKED LINE
--- NOTE | 2023-01-30 17:29 | NUR ---
SHIFT SUMMARY PT AXO, PLEASANT AND COOPERATIVE WITH CARE. VSS THOUGH HYPERTENSION NOTED WITH AFTERNOON VS. WILL MEDICATED WITH SCHEDULED MEDS PER EMAR. PT DENIES PAIN, SOB AND NV. PT AWAITING FOLLOW UP PODIATRY CONSULT. PER DR DAS, HE WILL SEE PATIENT TOMORROW. NO ACUTE CHANGES THIS SHIFT. PT UP AD JEANNETTE INDEPENDENTLY THOUGH ENCOURAGED TO CALL FOR ASSISTANCE WHEN NEEDED. PT'S SPOUSE PRESENT THROUGHOUT THE SHIFT. BED IN LOW POSITION, CALL LIGHT WITHIN REACH.
[2023-01-31 06:20] LABS: BASOPHILS ABSOLUTE AUTO 0.09 K/mm3 (0.00-0.23); BASOPHILS PERCENT AUTO 1 % (0-2); EOSINOPHILS ABSOLUTE AUTO 0.31 K/mm3 (0.00-0.68); EOSINOPHILS PERCENT AUTO 4 % (0-6); Hematocrit 42.2 % (37.0-53.0); Hemoglobin 13.9 g/dL (13.5-17.5); IMMATURE GRAN ABSOLUTE AUTO 0.11 K/mm3 (0.00-0.10); IMMATURE GRAN PERCENT AUTO 1 % (0-1); LYMPHOCYTES ABSOLUTE AUTO 2.55 K/mm3 (0.84-5.20); LYMPHOCYTES PERCENT AUTO 30 % (21-46); MONOCYTES ABSOLUTE AUTO 0.79 K/mm3 (0.16-1.47); MONOCYTES PERCENT AUTO 9 % (4-13); Mean Corpuscular HGB 28.3 pg (26.0-34.0); Mean Corpuscular HGB Conc 32.9 g/dL (31.5-36.5); Mean Corpuscular Volume 86 fL (80-100); Mean Platelet Volume 11.4 fL (9.1-12.4); NEUTROPHILS ABSOLUTE AUTO 4.58 K/mm3 (1.96-9.15); NEUTROPHILS PERCENT AUTO 54 % (41-73); Platelet Count 243 K/mm3 (150-400); RDW Coefficient Variation 12.9 % (11.7-14.2); RDW Standard Deviation 40.2 fL (35.1-46.3); Red Blood Cell Count 4.92 M/mm3 (4.30-5.90); White Blood Cell Count 8.43 K/mm3 (4.00-11.30)
[2023-01-31 06:36] LABS: Bun/Creatinine Ratio 23.5 (12.0-20.0); Calcium, Blood 12.1 mg/dL (8.5-10.1); Creatinine, Blood 1.32 mg/dL (0.60-1.20); Potassium, Blood 4.6 mmol/L (3.5-5.5)
[2023-01-31] MEDS ORDERED: DOXA2 PO (12:10)
[2023-01-31] MEDS ORDERED: CEPH500 PO (12:11)
--- NOTE | 2023-01-31 14:54 | NUR ---
PT AWAKE DURING SHIFT REPORT, LYING HF WITH TV ON. ADMITTED FOR L FOOT INFECTION, NOW REQUESTING TO GO HOME. PT REPORTING L FOOT SWELLING MUCH IMPROVED FROM ADMIT, THOUGH STILL SHOWING REDNESS AND SWELLING. DR DELVALLE AND DR WARREN BOTH IN TO SEE PT AND DISCUSS PLAN OF CARE. DR DELVALLE NOTIFIED DR DAS FROM PODIATRY. DR DAS TO TO ASSESS PT'S FOOT; PT CLEARED FOR D/C FROM PODIATRY. PT TO F/U WITH DR DAS THIS NEXT WEEK IN OFFICE. DR WARREN UPDATED AND NOTIFIED DR DAS. D/C ORDERS PLACED. MEDS FAXED TO [facility], PER PT REQUEST, SINCE [place] CLOSED TODAY. D/C INSTRUCTIONS REVIEWED WITH PT AND ; VERBALIZED UNDERSTANDING. PT ASSISTED OUT TO 'S CARE VIA W/C.
== END 2023-01-31 12:43 | disposition home or self-care (01) | DRG 638 ==
LOC: ER 16:11 → MEDS 16:12
PROVIDERS: Family Medicine; Student in an Organized Health Care Education/Training Program; ADMIT Internal Medicine
DX: E11.628 Type 2 diabetes mellitus with other skin complications (principal); I48.92 Unspecified atrial flutter; L03.116 Cellulitis of left lower limb; E11.40 Type 2 diabetes mellitus with diabetic neuropathy, unspecified; I10 Essential (primary) hypertension; E78.5 Hyperlipidemia, unspecified; E83.52 Hypercalcemia; I48.91 Unspecified atrial fibrillation; K21.9 Gastro-esophageal reflux disease without esophagitis; M10.9 Gout, unspecified; Z86.14 Personal history of Methicillin resistant Staphylococcus aureus infection; Z88.3 Allergy status to other anti-infective agents; Z88.8 Allergy status to other drugs, medicaments and biological substances; Z79.4 Long term (current) use of insulin; Z79.02 Long term (current) use of antithrombotics/antiplatelets; Z79.899 Other long term (current) drug therapy
CPT/HCPCS: 36415; 73630; 80048; 80053; 82947; 83605; 84550; 85025; 85651; 86140; 87040; 94640; 94664; 94760; 96365; 96366; 99285-25; A9270; G0378; J0690; J1815; J3370; J7030; J7050

== ENCOUNTER 2023-07-04 00:59 | Inpatient (IN) | payer OTHER ==
[~2023-07-04] VITALS: Ht 185.4 cm; Wt 123.2 kg
[~2023-07-04 00:59] MED LIST changes: +CEPH500 PO; +DOXA2 PO
[2023-07-04 02:25] LABS: Albumin, Blood 2.8 g/dL (3.4-5.0); Albumin/Globulin Ratio 0.6 (0.8-1.8); Bilirubin, Total 0.8 mg/dL (0.1-1.0); Bun/Creatinine Ratio 15.6 (12.0-20.0); Calcium, Blood 11.1 mg/dL (8.5-10.1); Creatinine, Blood 2.24 mg/dL (0.60-1.20); Globulin, Blood 4.6 g/dL (2.2-4.0); Potassium, Blood 4.3 mmol/L (3.5-5.5); Total Protein, Blood 7.4 g/dL (6.4-8.2)
[2023-07-04 02:27] LABS: BASOPHILS ABSOLUTE AUTO 0.03 K/mm3 (0.00-0.23); BASOPHILS PERCENT AUTO 0 % (0-2); EOSINOPHILS ABSOLUTE AUTO 0.05 K/mm3 (0.00-0.68); EOSINOPHILS PERCENT AUTO 0 % (0-6); Hematocrit 44.7 % (37.0-53.0); Hemoglobin 14.7 g/dL (13.5-17.5); IMMATURE GRAN ABSOLUTE AUTO 0.06 K/mm3 (0.00-0.10); IMMATURE GRAN PERCENT AUTO 0 % (0-1); LYMPHOCYTES ABSOLUTE AUTO 1.69 K/mm3 (0.84-5.20); LYMPHOCYTES PERCENT AUTO 11 % (21-46); MONOCYTES ABSOLUTE AUTO 1.62 K/mm3 (0.16-1.47); MONOCYTES PERCENT AUTO 10 % (4-13); Mean Corpuscular HGB Conc 32.9 g/dL (31.5-36.5); Mean Corpuscular Volume 88 fL (80-100); NEUTROPHILS ABSOLUTE AUTO 12.08 K/mm3 (1.96-9.15); NEUTROPHILS PERCENT AUTO 78 % (41-73); Platelet Count 126 K/mm3 (150-400); RDW Coefficient Variation 14.7 % (11.7-14.2); RDW Standard Deviation 47.8 fL (35.1-46.3); Red Blood Cell Count 5.07 M/mm3 (4.30-5.90); White Blood Cell Count 15.53 K/mm3 (4.00-11.30)
[2023-07-04 02:34] LABS: Mean Platelet Volume 13.3 fL (9.1-12.4)
[2023-07-04 04:44] VITALS: BP 99/62
[2023-07-04 07:43] VITALS: BP 121/71
--- NOTE | 2023-07-04 09:00 | NUR ---
pt laying in bed watching tv, a/ox4, pleasant and cooperative with care, follows commands well, denies pain at this time, lungs are dim t/o, resp even and unlabored, no cough noted, hrirr, tele in place running afib per monitor, see strip, 1 - 2+ edema noted to b/l feet, pp faint, cap refill <3sec, vs stable, afebrile, iv site to r fa, site is clear and patent, infusing ns at 75mls/hr, btx4, abd flat soft nontender, voids via urinal, skin has 2nd degree boateng on soles of feet, the whole length of the foot, skin otherwise looks good, chery wells, call light in reach.
[2023-07-04 12:38] LABS: Albumin, Blood 2.9 g/dL (3.4-5.0); Albumin/Globulin Ratio 0.7 (0.8-1.8); Bilirubin, Total 0.7 mg/dL (0.1-1.0); Calcium, Blood 10.6 mg/dL (8.5-10.1); Creatinine, Blood 2.24 mg/dL (0.60-1.20); Potassium, Blood 4.2 mmol/L (3.5-5.5); Total Protein, Blood 6.9 g/dL (6.4-8.2)
[2023-07-04 12:44] LABS: BASOPHILS ABSOLUTE AUTO 0.03 K/mm3 (0.00-0.23); BASOPHILS PERCENT AUTO 0 % (0-2); EOSINOPHILS ABSOLUTE AUTO 0.05 K/mm3 (0.00-0.68); EOSINOPHILS PERCENT AUTO 0 % (0-6); Hematocrit 38.6 % (37.0-53.0); Hemoglobin 13.2 g/dL (13.5-17.5); IMMATURE GRAN ABSOLUTE AUTO 0.08 K/mm3 (0.00-0.10); IMMATURE GRAN PERCENT AUTO 1 % (0-1); LYMPHOCYTES ABSOLUTE AUTO 1.44 K/mm3 (0.84-5.20); LYMPHOCYTES PERCENT AUTO 12 % (21-46); MONOCYTES ABSOLUTE AUTO 1.14 K/mm3 (0.16-1.47); MONOCYTES PERCENT AUTO 9 % (4-13); Mean Corpuscular HGB 29.3 pg (26.0-34.0); Mean Corpuscular HGB Conc 34.2 g/dL (31.5-36.5); Mean Corpuscular Volume 86 fL (80-100); NEUTROPHILS ABSOLUTE AUTO 9.53 K/mm3 (1.96-9.15); NEUTROPHILS PERCENT AUTO 78 % (41-73); Platelet Count 142 K/mm3 (150-400); RDW Coefficient Variation 14.7 % (11.7-14.2); RDW Standard Deviation 45.8 fL (35.1-46.3); Red Blood Cell Count 4.51 M/mm3 (4.30-5.90); White Blood Cell Count 12.27 K/mm3 (4.00-11.30)
[2023-07-04 12:58] LABS: Mean Platelet Volume 13.6 fL (9.1-12.4)
[2023-07-04 16:36] VITALS: BP 169/97
--- NOTE | 2023-07-04 17:10 | NUR ---
SPOKE TO DR GARCIA. CHANGE S/S TO MARISA CAAL PEN, HIGH S/S. GIVE 18 UNITS NOW FOR CBG OF 427. MOVE TO ADA DIET. STARTING GLARGINE 40 UNITS BID. START 9PM
--- NOTE | 2023-07-04 17:13 | NUR ---
RECHECK CGB 2 HRS. FOR NEW CBG
--- NOTE | 2023-07-04 18:02 | NUR ---
pt was incont of urine in his shorts, these were removed, he was cleaned and new bedding placed on bed, dressings on feet as ordered, insulin was changed by Dr. Prakash as his glucose in the 's, no further changes this shift. call light in reach.
[2023-07-04 19:52] VITALS: BP 150/94
[2023-07-05 05:10] LABS: BASOPHILS ABSOLUTE AUTO 0.05 K/mm3 (0.00-0.23); BASOPHILS PERCENT AUTO 1 % (0-2); EOSINOPHILS ABSOLUTE AUTO 0.17 K/mm3 (0.00-0.68); EOSINOPHILS PERCENT AUTO 2 % (0-6); Hematocrit 38.2 % (37.0-53.0); Hemoglobin 12.7 g/dL (13.5-17.5); IMMATURE GRAN ABSOLUTE AUTO 0.06 K/mm3 (0.00-0.10); IMMATURE GRAN PERCENT AUTO 1 % (0-1); LYMPHOCYTES ABSOLUTE AUTO 1.68 K/mm3 (0.84-5.20); LYMPHOCYTES PERCENT AUTO 16 % (21-46); MONOCYTES ABSOLUTE AUTO 1.18 K/mm3 (0.16-1.47); MONOCYTES PERCENT AUTO 11 % (4-13); Mean Corpuscular HGB 29.1 pg (26.0-34.0); Mean Corpuscular HGB Conc 33.2 g/dL (31.5-36.5); Mean Corpuscular Volume 88 fL (80-100); NEUTROPHILS PERCENT AUTO 70 % (41-73); Platelet Count 158 K/mm3 (150-400); RDW Coefficient Variation 14.5 % (11.7-14.2); RDW Standard Deviation 46.9 fL (35.1-46.3); Red Blood Cell Count 4.36 M/mm3 (4.30-5.90); White Blood Cell Count 10.44 K/mm3 (4.00-11.30)
[2023-07-05 05:14] VITALS: BP 151/89
--- NOTE | 2023-07-05 05:34 | NUR ---
SHIFT SUMMARY; NO ACUTE CHANGES OVERNIGHT. THE PT HAS BEEN SLEEPING IN BED FOR THE ENTIRETY OF THE NIGHT. THE PT IS AXO X4 AND INCONTINENT. THE PT HAS GOTTEN TWO DRESSING CHANGES TO HIS FEET THIS SHIFT. THE PT DENIES ANY PAIN TO HIS FEET HE HAS NO FEELING R/T NEUROPATHY. THE PT IS ON TELE- A-FIB/A-FLUTTER OVERNIGHT. THE PT DENIES ANY CHEST PAIN/PRESSURE, SOB, N/V OR PAIN THIS SHIFT. CURRENTLY THE PT IS SLEEPING IN BED WITH THE BED IN THE LOWEST POSITION AND THE CALL LIGHT AT BEDSIDE. FIRE SAFETY MAINTAINED T/O THE NIGHT.
[2023-07-05 05:39] LABS: Albumin, Blood 2.5 g/dL (3.4-5.0); Anion Gap 6 mmol/L (6-16); Blood Urea Nitrogen 36 mg/dL (8-24); Bun/Creatinine Ratio 20.1 (12.0-20.0); CO2, Blood 22 mmol/L (21-32); Calcium, Blood 10.9 mg/dL (8.5-10.1); Chloride, Blood 105 mmol/L (98-108); Creatinine, Blood 1.79 mg/dL (0.60-1.20); Glomerular Filtration Rate 40 (60-); Glucose, Blood 214 mg/dL (70-99); Potassium, Blood 4.3 mmol/L (3.5-5.5); Sodium, Blood 133 mmol/L (136-145)
[2023-07-05 07:44] VITALS: BP 133/89
--- NOTE | 2023-07-05 15:37 | NUR ---
DRESSING CHANGE DRESSING CHANGE PERFORMED THIS SHIFT PER THE WOUND CARE ORDERS. PT TOLERATED THE DRESSING CHANGED WELL.
[2023-07-05 15:56] VITALS: BP 157/99
--- NOTE | 2023-07-05 16:46 | NUR ---
SHIFT SUMMARY PT AOX4, BEDREST. PT IS INCONTINENT, BRIEF IN PLACE AND CHANGED PRN. PT'S HAS BEEN AT THE BS ALL SHIFT. HE HAS HAD NO COMPLAINTS. CALLS WELL AND MAKES HIS NEEDS KNOWN. AWAITING A CONSULT FROM THE CHILD PROTECTIVE SERVICES SOCIAL WORKER. FIRE SAFETY PROTOCOLS AND PROCEDURES ACKNOWLEDGED BY THE PT AND . HE IS ON RA. CALL LIGHT WITHIN REACH, BED IN THE LOWEST POSITION. WILL REPORT TO ONCOMING NURSE.
[2023-07-05 19:32] VITALS: BP 153/113
[2023-07-06] VITALS (7 sets, daily range): BP systolic 114–197; BP diastolic 72–112
--- NOTE | 2023-07-06 05:01 | NUR ---
FENTANYL 50 MCG FOR CHRONIC BACK PAIN, AOX4, PLEASANT, HYPERTENSIVE AND A FIB BETWEEN 100-120, TELE MONITORING IN PROGRESS. DRESSING CHANGES TO BLE ORDERED, NO CHANGES NOTED TO FEET FROM REPORT. INCONTINENT OF URINE THOUGH PT STATES HE IS CONTINENT AT HOME. FIRE SAFETY REVIEWED.
[2023-07-06 05:35] LABS: Bun/Creatinine Ratio 23.1 (12.0-20.0); Calcium, Blood 11.5 mg/dL (8.5-10.1); Creatinine, Blood 1.43 mg/dL (0.60-1.20); Potassium, Blood 4.1 mmol/L (3.5-5.5)
[2023-07-07 02:22] VITALS: BP 152/96
--- NOTE | 2023-07-07 05:24 | NUR ---
SHIFT SUMMARY WOUND CARE COMPLETED THIS SHIFT ORDERED. PT TOLERATED WELL. AWAITING PODIETRY CONSULT FOR FURTHER TREATMENT PLAN OF WOUNDS. MEDICATED FOR PAIN ONCE THIS SHIFT. PLEASANT & COOPERATIVE T/O SHIFT. CURRENTLY RESTING IN BED WITH CALL LIGHT IN REACH. DENIES OTHER NEEDS AT THIS TIME. NO ACUTE CHANGES IN ASSESSMENT AT THIS TIME. VS REVIEWED. NO TELE EVENTS OVERNIGHT.
[2023-07-07 05:59] LABS: Bun/Creatinine Ratio 23.5 (12.0-20.0); Calcium, Blood 11.6 mg/dL (8.5-10.1); Creatinine, Blood 1.32 mg/dL (0.60-1.20); Potassium, Blood 4.7 mmol/L (3.5-5.5)
[2023-07-07 07:51] VITALS: BP 113/91
--- NOTE | 2023-07-07 12:31 | NUR ---
TELEPHONE ORDER FROM DR. DAS FOR PT TO BE "PARTIAL WEIGHT BEARING TO HEELS ONLY." RN CALLED MD TO GET WT BEARING ORDER. RN TO PLACE ORDER.
--- NOTE | 2023-07-07 12:38 | NUR ---
CALLED DR. OWENS AND INFORMED HIM PT HAS NOT HAD A BM SINCE 07/01/23. SAID HE WILL ORDER BOWEL CARE ORDERS.
[2023-07-07 15:37] VITALS: BP 99/66
--- NOTE | 2023-07-07 17:15 | NUR ---
SUMMARY- NO ACUTE EVENTS THIS SHIFT. PAIN WELL CONTROLLED W/PAIN MEDS PER EMAR THIS SHIFT. LEFT FA IV BECAME INFILTRATED THIS SHIFT AND WAS REMOVED. NEW IV PLACED. RN CLARIFIED PT'S WEIGHT BEARING STATUS PER DAS. PT IS TO BE PARTIALLY WEIGHT BEARING TO BILATERAL HEELS. PT REFUSED TO WORK W/PT TODAY. PT STAYED IN BED ALL SHIFT. RN EDUCATED PT ABOUT MAINTAINING SKIN INTEGRITY AND OFFLOADING PRESSURE. ORDERED WOUND CARE TO BILAT FEET PERFORMED PER ORDERS.
[2023-07-07 20:08] VITALS: BP 132/85
[2023-07-08 00:44] LABS: Vancomycin, Trough 24.7 ug/mL (5.0-10.0)
[2023-07-08 00:47] LABS: Bun/Creatinine Ratio 27.2 (12.0-20.0); Calcium, Blood 11.5 mg/dL (8.5-10.1); Creatinine, Blood 1.36 mg/dL (0.60-1.20); Potassium, Blood 5.1 mmol/L (3.5-5.5)
[2023-07-08 02:05] VITALS: BP 127/79
--- NOTE | 2023-07-08 05:36 | NUR ---
SHIFT SUMMARY A/Ox4 AND MOSTLY COOPERATIVE WITH CARE. ANSWERS QUESTIONS APPROPRIATELY AND MAKES MOST OF HIS NEEDS KNOWN. NO ACUTE EVENTS OVERNIGHT FOR PT WAS ABLE TO SLEEP T/O MOST OF THE SHIFT. CARDIAC, REMAINS IN AFLUTTER 90-100'S WITH NO REPORTS OF ANY CP OR PRESSURE. SBP HAS BEEN STABLE RANGING 120-130'S. RESPIRATORY, MAINTAINS SPO2 >90% ON RA WITH NO REPORTS OF SOB OR DYSPNEA WHILE AT REST. GI/, PT REPORTS NOT HAVING A BM FOR SOME TIME. BS PRESENT BUT HYPOACTIVE. BOWEL PREP MEDICATION ON BOARD. INTERMITTENT EPISODES OF INCONTINENCE WITH PT CHOOSING TO VOID INTO ATTENDS. PT ENCOURAGED TO ABULATE VIA HEEL TOUCH PER MD ORDERS. DAILY DRESSING CHANGE PERFORMED ON BILAT FEET. SITES CLEANED AND DRESSED ORDERED. ASSESSED PT FOR RISKS OF ANY IGNITION SOURCES WELL BEHAVIORS FOR INCREASED RISKS OF FIRE DANGER. PT EDUCATED ON COMMON SOURCES OF IGNITION WELL NEED TO KEEP A SAFE ENVIRONMENT. PT VOICED UNDERSTANDING. NO NEW ORDERS AT THIS TIME, WILL REPORT TO ONCOMING RN. CANDE FERGUSON OF THIS NOTE
[2023-07-08 08:02] VITALS: BP 128/87
[2023-07-08] MEDS ORDERED: DOCU100 PO (13:10)
[2023-07-08] MEDS ORDERED: LIDO700A20 TOP (13:11)
[2023-07-08] MEDS ORDERED: OXYC5 PO (13:11)
[2023-07-08] MEDS ORDERED: SILVADENE20 G8 TOP (13:12)
[2023-07-08] MEDS ORDERED: MIRALAX17 GM PO (13:13)
[2023-07-08] MEDS ORDERED: BACTRIM DS TAB1 EAC6 PO (13:14)
[2023-07-08 14:55] LABS: Vancomycin, Random 18.8 ug/mL
--- NOTE | 2023-07-08 15:00 | NUR ---
SHIFT SUMMARY AND DISCHARGE PATIENT DISCHARGED TO HOME. DISCHARGE INSTRUCTIONS REVIEWED WITH PATIENT AND . PATIENT TO HAVE HOME HEALTH ASSIST WITH WOUND CARE. WOUND CARE PROVIDED TO BILATERAL FEET. PATIENT ABLE TO TRANSFER TO WHEELCHAIR FOR DISCHARGE. PATIENT TO SEE PODIATRY AN OUTPATIENT. PATIENT AWARE THAT HE HAS OSTEOMYLITIS. IV DC'D. BELONGINGS RETURNED TO PATIENT AND ROOM CHECK DONE BEFORE PATIENT DISCHARGED.
== END 2023-07-08 15:25 | disposition home health service (06) | DRG 872 ==
LOC: ER 00:59 → MEDS 03:42 → ER 04:28 → MEDS 04:41
PROVIDERS: Emergency Medicine; Family Medicine; Internal Medicine; ADMIT Internal Medicine
DX: A41.9 Sepsis, unspecified organism (principal); N17.9 Acute kidney failure, unspecified; I48.92 Unspecified atrial flutter; T25.321A Burn of third degree of right foot, initial encounter; T25.322A Burn of third degree of left foot, initial encounter; E87.1 Hypo-osmolality and hyponatremia; E83.52 Hypercalcemia; E88.09 Other disorders of plasma-protein metabolism, not elsewhere classified; E78.5 Hyperlipidemia, unspecified; I12.9 Hypertensive chronic kidney disease with stage 1 through stage 4 chronic kidney disease, or unspecified chronic kidney disease; M19.072 Primary osteoarthritis, left ankle and foot; K21.9 Gastro-esophageal reflux disease without esophagitis; R65.20 Severe sepsis without septic shock; N18.30 Chronic kidney disease, stage 3 unspecified; E66.01 Morbid (severe) obesity due to excess calories; I48.91 Unspecified atrial fibrillation; E11.42 Type 2 diabetes mellitus with diabetic polyneuropathy; E86.0 Dehydration; E11.22 Type 2 diabetes mellitus with diabetic chronic kidney disease; D69.6 Thrombocytopenia, unspecified; F17.290 Nicotine dependence, other tobacco product, uncomplicated; X58.XXXA Exposure to other specified factors, initial encounter; Z79.4 Long term (current) use of insulin; Z79.2 Long term (current) use of antibiotics; Z79.891 Long term (current) use of opiate analgesic; Z79.899 Other long term (current) drug therapy; Z86.14 Personal history of Methicillin resistant Staphylococcus aureus infection; Z88.8 Allergy status to other drugs, medicaments and biological substances; Z89.421 Acquired absence of other right toe(s); Z79.01 Long term (current) use of anticoagulants; Y93.01 Activity, walking, marching and hiking; Z68.35 Body mass index [BMI] 35.0-35.9, adult
CPT/HCPCS: 36415; 51798; 71045; 73630; 73720; 76770; 80048; 80053; 80069; 80202; 82947; 83605; 83880; 84484; 85025; 87070; 87077; 87147; 87186; 87205; 93005; 93010; 97110; 97162; 97530; 99285-25; A9270; A9579; J0690; J1644; J1815; J3010; J3370; J7030; J7050; P9046